=== PATIENT | male | born 1985 | race Caucasian/White ===

== ENCOUNTER 2018-05-25 18:54 | Emergency (ER) | payer BC ==
[2018-05-25 19:04] VITALS: BP 151/90
[2018-05-25] MEDS ORDERED: Ibuprofen TAB* 600 MG PO ONE (20:46)
--- NOTE | 2018-05-25 20:52 | UC ---
Lower Extremity/Ankle HPI - HPI Summary HPI Summary: workes over night in [place] 2 days ago he developed pain along medial aspect of left foot-no know injury - History of Current Complaint Chief Complaint: UCLowerExtremity Stated Complaint: L FOOT PAIN Time Seen by Provider: 05/25/18 20:27 Hx Obtained From: Patient Onset/Duration: Sudden Onset, Lasting Days - 2 Severity Initially: Moderate Severity Currently: Moderate Pain Intensity: 5 Pain Scale Used: 0-10 Numeric Aggravating Factor(s): Standing Alleviating Factor(s): Rest, Elevation Able to Bear Weight: Yes - with pain - Allergies/Home Medications Allergies/Adverse Reactions: Allergies Allergy/AdvReac Type Severity Reaction Status Date / Time Penicillins Allergy Unknown Verified 05/25/18 19:05 Reaction Details PMH/Surg Hx/FS Hx/Imm Hx Previously Healthy: Yes - Surgical History Surgical History: Yes Surgery Procedure, Year, and Place: Right nephrectomy at age 11 months. Testicle torsion repair age 15 - Family History Known Family History: Positive: Cardiac Disease - Grandmother @69 due to CHF, Hypertension - father Negative: Diabetes - Social History Occupation: Employed Full-time Lives: With Family Alcohol Use: Rare Substance Use Type: None Smoking Status (MU): Former Smoker Type: eCigarettes Length of Time of Smoking/Using Tobacco: [id number] Have You Smoked in the Last Year: No When Did the Patient Quit Smoking/Using Tobacco: 2014 Review of Systems Constitutional: Negative Skin: Negative Eyes: Negative ENT: Negative Respiratory: Negative Cardiovascular: Negative Gastrointestinal: Negative Genitourinary: Negative Motor: Negative Neurovascular: Negative Musculoskeletal: Arthralgia - medial aspect of left foot and left great toe Neurological: Negative Psychological: Negative Is Patient Immunocompromised?: No All Other Systems Reviewed And Are Negative: Yes Physical Exam Triage Information Reviewed: Yes Appearance: Well-Appearing, No Pain Distress, Well-Nourished Vital Signs: Initial Vital Signs Temp 97.0 F 05/25/18 18:59 Pulse 85 05/25/18 18:59 Resp 16 05/25/18 18:59 BP 151/90 05/25/18 18:59 Pulse Ox 100 05/25/18 18:59 Vital Signs Reviewed: Yes Eye Exam: Normal Eyes: Positive: Conjunctiva Clear ENT Exam: Normal ENT: Positive: Normal ENT inspection, Hearing grossly normal. Negative: Trismus , Muffled voice, Hoarse voice Dental Exam: Normal Neck exam: Normal Neck: Positive: Supple, Nontender Respiratory Exam: Normal Respiratory: Positive: Chest non-tender, No respiratory distress, No accessory muscle use Cardiovascular Exam: Normal Cardiovascular: Positive: RRR, Pulses Normal, Brisk Capillary Refill Musculoskeletal Exam: Normal Musculoskeletal: Positive: Strength Intact, ROM Intact, No Edema Neurological Exam: Normal Neurological: Positive: Alert, Muscle Tone Normal Psychological Exam: Normal Skin Exam: Normal Diagnostics - Radiology No standard instances Radiology Interpretation Completed By: ED Physician Summary of Radiographic Findings: no acute bone injury Lower Extremity Course/Dx - Course Course Of Treatment: jemal wrap. post op shoe, crutches short course of Ibuprofen , rice, orthodic inserts, follow with ortho prn - Differential Dx/Diagnosis Provider Diagnoses: left foot pain-overuse injury Discharge - Sign-Out/Discharge Documenting (check all that apply): Patient Departure All imaging exams completed and their final reports reviewed: No - Discharge Plan Condition: Stable Disposition: HOME Prescriptions: Ibuprofen TAB* [Motrin TAB* 600 MG] 600 mg PO Q6H PRN #40 tab PRN Reason: Pain Patient Education Materials: Tendinitis (ED), R.I.C.E. Treatment (ED) Referrals: Davy Cerrato MD [Medical Doctor] - If Needed [facility] [Outside] - 2 Weeks (follow up blood pressure ) - Billing Disposition and Condition Condition: STABLE Disposition: Home
--- NOTE | 2018-05-26 08:05 | RAD ---
INDICATION: Plantar surface pain of the left foot and great toe COMPARISON: None. TECHNIQUE: 3 views of the left foot and 3 views of the left great toe were obtained. FINDINGS: The adequately corticated bones are properly aligned. Joint spaces appear maintained. No fracture, dislocation or focal bony abnormality is seen. IMPRESSION: NORMAL RADIOGRAPH OF THE LEFT FOOT AND GREAT TOE. If the patient's symptoms persist, follow-up imaging is recommended. R0
--- NOTE | 2018-05-26 08:12 | UC ---
- Progress Note Progress Note: RADIOLOGY READ REVIEWED. NO ACUTE FINDING. NO CHANGE IN MGMT. Discharge - Sign-Out/Discharge Documenting (check all that apply): Post-Discharge Follow Up All imaging exams completed and their final reports reviewed: Yes - Discharge Plan Condition: Stable Disposition: HOME Prescriptions: Ibuprofen TAB* [Motrin TAB* 600 MG] 600 mg PO Q6H PRN #40 tab PRN Reason: Pain Patient Education Materials: Tendinitis (ED), R.I.C.E. Treatment (ED) Referrals: [facility] [Outside] - 2 Weeks (follow up blood pressure ) Davy Cerrato MD [Medical Doctor] - If Needed - Billing Disposition and Condition Condition: STABLE Disposition: Home
== END 2018-05-25 21:03 | disposition home or self-care (01) ==
LOC: UCEAST 18:54
DX: M79.672 Pain in left foot (principal); Z87.891 Personal history of nicotine dependence; Z88.0 Allergy status to penicillin; X50.9XXA Other and unspecified overexertion or strenuous movements or postures, initial encounter; Y92.89 Other specified places as the place of occurrence of the external cause
CPT/HCPCS: 99213; A9270-GY; G0463